=== PATIENT | female | born 1975 | race African-American/Black ===

== ENCOUNTER 2018-11-22 15:26 | Emergency (ER) | payer OTHER ==
--- NOTE | 2018-11-22 15:47 | PDOC ---
Rapid Medical Evaluation Chief Complaint: Migraine Headache Time Seen by Provider: 11/22/18 15:46 Medical Evaluation: Allergies Allergy/AdvReac Type Severity Reaction Status Date / Time No Known Allergies Allergy Verified 01/06/16 15:15 11/22/18 15:46 I performed a brief in-person evaluation of this patient. Chief complaint: Headache x 5 days, sent by PCP for eval Pertinent physical exam findings: No focal neurologic deficits I have ordered the following: Basic labs Patient will proceed to the ED for further evaluation. Discharge Disposition - Diagnosis Headache - Referrals - Patient Instructions - Post Discharge Activity
[2018-11-22 15:49] VITALS: BP 109/64; PULSE 86; TEMP 98; BMI 27.7
[2018-11-22 17:53] LABS: URINE APPEARANCE CLEAR; URINE BILIRUBIN NEGATIVE (<2.0 mg/dL); URINE COLOR YELLOW; URINE GLUCOSE (UA) NEGATIVE (NEGATIVE); URINE KETONE NEGATIVE (NEGATIVE); URINE LEUK ESTERASE NEGATIVE (NEGATIVE); URINE NITRITE NEGATIVE (NEGATIVE); URINE PROTEIN 2+ (NEGATIVE); URINE UROBILINOGEN NEGATIVE mg/dL (0.2-1.0)
[2018-11-22 17:59] LABS: BASO % 1.3 % (0-2.0); EOS % 4.1 % (0-4.5); HEMATOCRIT 38.2 % (32.4-45.2); LYMPH % 42.4 % (8-40); MCH 29.2 pg (25.7-33.7); MEAN CELL VOLUME 85.9 fl (80-96); MEAN PLT VOLUME 9.2 fl (7.5-11.1); MONO % 6.5 % (3.8-10.2); NEUT % 45.7 % (42.8-82.8); PLATELET COUNT 210 K/MM3 (134-434); RBC 4.45 M/mm3 (3.60-5.2); RDW 15.6 % (11.6-15.6); WHITE BLOOD COUNT 3.5 K/mm3 (4.0-10.0)
[2018-11-22 18:15] LABS: EPI CELLS RARE /HPF (FEW); URINE MUCUS RARE
[2018-11-22 18:20] LABS: ALBUMIN 3.8 g/dl (3.4-5.0); ALK PHOS 89 U/L (45-117); ANION GAP 4 MMOL/L (8-16); BILIRUBIN,TOTAL 0.2 mg/dL (0.2-1); BLOOD UREA NITROGEN 15 mg/dL (7-18); CALCIUM 8.6 mg/dL (8.5-10.1); CHLORIDE 108 mmol/L (98-107); CO2 28 mmol/L (21-32); CREATININE 0.6 mg/dL (0.55-1.3); GLUCOSE,RANDOM 92 mg/dL (74-106); POTASSIUM 4.1 mmol/L (3.5-5.1); SGOT/AST 20 U/L (15-37); SGPT/ALT 24 U/L (13-61); SODIUM 139 mmol/L (136-145); TOT PROT 7.6 g/dl (6.4-8.2)
[2018-11-22] MEDS ORDERED: METOCLOPRAMIDE HCL INJECTION 10 MG/2 ML VIAL IVPUSH ONE (18:31)
[2018-11-22] MEDS ORDERED: KETOROLAC TROMETHAMINE 30 MG/1 ML VIAL IVPUSH ONE (18:31)
--- NOTE | 2018-11-22 18:31 | PDOC ---
History of Present Illness - General Chief Complaint: Migraine Headache Stated Complaint: TOLU Time Seen by Provider: 11/22/18 15:46 History Source: Patient Exam Limitations: No Limitations - History of Present Illness Initial Comments: 11/22/18 19:30 HISTORY OF PRESENT ILLNESS: This is a 43-year-old woman with past medical history of diabetes and hyperlipidemia presents emergency department for 1 week of left-sided headache with intermittent dizziness. Patient reports headache started approximately one week ago does have a slow crescendo currently rates the pain 8/10. She describes the pain as deep and a pressure. She denies any nausea, vomiting, visual disturbances, photophobia or phonophobia. Patient reports less episode of dizziness was approximately 4 days ago which she described as a room spinning sensation. Patient reports the episode lasted for approximately 20 minutes and then spontaneously resolved. Patient has not taken any analgesic. No recent travel or sick contacts. PAST MEDICAL HISTORY: see HPI SURGICAL HISTORY: Denies ALLERGIES: No known drug allergies REVIEW OF SYSTEMS General/Constitutional: Denies fever or chills. Denies weakness, weight change. HEENT: Denies change in vision. Denies ear pain or discharge. Denies sore throat. Cardiovascular: Denies chest pain or shortness of breath. Respiratory: Denies cough, wheezing, or hemoptysis. Gastrointestinal: Denies nausea, vomiting, diarrhea or constipation. Denies rectal bleeding. Genitourinary: Denies dysuria, frequency, or change in urination. Musculoskeletal: Denies joint or muscle swelling or pain. Denies neck or back pain. Skin and breasts: Denies rash or easy bruising. Neurologic: see HPI Psychiatric: Denies depression or anxiety. Endocrine: Denies increased thirst. Denies abnormal weight change. Hematologic/Lymphatic: Denies anemia, easy bleeding, or history of blood clots. Allergic/Immunologic: Denies hives or skin allergy. Denies latex allergy. PHYSICAL EXAM General Appearance: Well-appearing, appropriately dressed. No apparent distress , no intoxication. HEENT: EOMI, PERRLA, normal ENT inspection, normal voice, TMs normal, pharynx normal. No conjunctival pallor. No photophobia, scleral icterus. Neck: Supple. Trachea midline. No tenderness, rigidity, carotid bruit, stridor , lymphadenopathy, or thyromegaly. Respiratory/Chest: Lungs CTAB. No shortness of breath, chest tenderness, respiratory distress, accessory muscle use. No crackles, rales, rhonchi, stridor , wheezing, dullness Cardiovascular: RRR. S1, S2. No JVD, murmur, bradycardia, tachycardia. Vascular Pulses: Dorsalis-Pedis (R): 2+, Dorsalis-Pedis (L): 2+ Gastrointestinal/Abdominal: Normal bowel sounds. Abdomen soft, non-distended. No tenderness or rebound tenderness. No organomegaly, pulsatile mass, guarding, hernia, hepatomegaly, splenomegaly. Lymphatic: No adenopathy, tenderness. Musculoskeletal/Extremities: Normal inspection. FROM of all extremities, normal capillary refill. Pelvis Stable. No CVA tenderness. No tenderness to extremities, pedal edema, swelling, erythema or deformity. Integumentary: Appropriate color, dry, warm. 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 Fully oriented, alert. Appropriate mood/affect. Motor strength 5/5. Normal finger to nose testing. Gait steady. No appreciable EOM palsy, facial droop or sensory deficit. Past History - Past Medical History Allergies/Adverse Reactions: Allergies Allergy/AdvReac Type Severity Reaction Status Date / Time No Known Allergies Allergy Verified 11/22/18 15:49 Home Medications: Ambulatory Orders No Home Medications 0 dose .ROUTE UTDICT 01/23/14 Amox-Tr/K Cl [Augmentin - 875Mg Tablet] 1 tab PO BID #14 tablet 01/06/16 Aspirin [ASA -] 81 mg PO DAILY 01/06/16 Atorvastatin Ca [Lipitor] 40 mg PO HS 01/06/16 Metformin HCl [Glucophage] 1,000 mg PO DAILY 01/06/16 COPD: No Diabetes: Yes Hypercholesterolemia: No - Immunization History Immunization Up to Date: Yes - Suicide/Smoking/Psychosocial Hx Smoking History: Never smoked Have you smoked in the past 12 months: No Information on smoking cessation initiated: No Hx Alcohol Use: No Drug/Substance Use Hx: No Substance Use Type: None *Physical Exam - Vital Signs Last Vital Signs Temp Pulse Resp BP Pulse Ox 98.0 F 86 18 109/64 100 11/22/18 15:45 11/22/18 15:45 11/22/18 15:45 11/22/18 15:45 11/22/18 15:45 Moderate Sedation - Procedure Monitoring Vital Signs: Procedure Monitoring Vital Signs Temperature 98.0 F 11/22/18 15:45 Pulse Rate 86 11/22/18 15:45 Respiratory Rate 18 11/22/18 15:45 Blood Pressure 109/64 11/22/18 15:45 O2 Sat by Pulse Oximetry (%) 100 11/22/18 15:45 ED Treatment Course - LABORATORY CBC & Chemistry Diagram: 11/22/18 17:38 11/22/18 17:38 - ADDITIONAL ORDERS Additional order review: Laboratory Results 11/22/18 11/22/18 11/22/18 17:38 17:06 17:06 Sodium 139 Potassium 4.1 Chloride 108 H Carbon Dioxide 28 Anion Gap 4 L BUN 15 Creatinine 0.6 Creat Clearance w eGFR 109.63 Random Glucose 92 Calcium 8.6 Total Bilirubin 0.2 AST 20 ALT 24 Alkaline Phosphatase 89 Total Protein 7.6 Albumin 3.8 Urine Color Yellow Urine Appearance Clear Urine pH 8.0 Ur Specific [place] 1.023 Urine Protein 2+ H Urine Glucose (UA) Negative Urine Ketones Negative Urine Blood Negative Urine Nitrite Negative Urine Bilirubin Negative Urine Urobilinogen Negative Ur Leukocyte Esterase Negative Urine WBC (Auto) <1 Urine RBC (Auto) 33 Ur Epithelial Cells Rare Urine Mucus Rare Urine HCG, Qual Negative 11/22/18 17:38 RBC 4.45 MCV 85.9 MCHC 34.0 RDW 15.6 D MPV 9.2 D Neutrophils % 45.7 Lymphocytes % 42.4 H Monocytes % 6.5 Eosinophils % 4.1 Basophils % 1.3 - RADIOLOGY Radiology Studies Ordered: Category Date Time Status HEAD CT WITHOUT CONTRAST [CT] Stat CT Scan 11/22/18 17:39 Ordered Medical Decision Making - Medical Decision Making 11/22/18 19:30 A/P: 43-year-old woman right-sided headache for the past 7 days. Neurologic exam is within normal limits CBC, CMP, ESR Urine testing CAT scan of the head Reglan 10 mg IV Benadryl 25 mg IV Toradol 30 mg IV Normal saline 1 L CAT scan of the head as read by Dr. Marc: Normal CT scan of the head with no evidence of acute intracranial pathology. 11/22/18 20:13 Laboratory testing notable for WBC of 3.5. Patient with known neutropenia per paperwork from PMD. Patient states relief from headache after receiving rescue medication for migraine. Given normal CAT scan I will discharge the patient home to follow-up with her primary doctor for reevaluation. I discussed the physical exam findings, ancillary test results and final diagnoses with the patient. I answered all of the patient's questions. The patient was satisfied with the care received and felt comfortable with the discharge plan and treatment plan. The patient will call their primary care physician within 24 hours to arrange follow-up and will return to the Emergency Department with any new, persistent or worsening symptoms. *DC/Admit/Observation/Transfer Diagnosis at time of Disposition: Headache Qualifiers: Headache type: unspecified Headache chronicity pattern: acute headache Intractability: not intractable Qualified Code(s): R51 - Headache - Discharge Dispostion Disposition: HOME Condition at time of disposition: Fair Decision to Admit order: No - Referrals - Patient Instructions Additional Instructions: Take Tylenol or Motrin as needed for headaches. Keep a diary of all food to eat and activities performed prior to headaches starting. Make an appointment with her primary doctor for reevaluation within the next week. Return to emergency department for worsening headache, blurry vision, dizziness , nausea, vomiting or any other concerns. Thank you very much for for choosing us to provide emergent health care needs. - Post Discharge Activity
[2018-11-22] MEDS ORDERED: SODIUM CHLORIDE 1,000 ML IV STA (19:16)
[2018-11-22] MEDS ORDERED: METOCLOPRAMIDE HCL INJECTION 10 MG/2 ML VIAL ONE (19:16)
[2018-11-22] MEDS ORDERED: KETOROLAC TROMETHAMINE 30 MG/1 ML VIAL ONE (19:17)
== END 2018-11-22 20:16 | disposition home or self-care (01) ==
LOC: JERFT 15:26
PROC: 3E0337Z Introduction of Electrolytic and Water Balance Substance into Peripheral Vein, Percutaneous Approach (ICD-10-PCS; principal; 2018-11-22)
PROC: 3E0333Z Introduction of Anti-inflammatory into Peripheral Vein, Percutaneous Approach (ICD-10-PCS; 2018-11-22)
PROC: 3E033GC Introduction of Other Therapeutic Substance into Peripheral Vein, Percutaneous Approach (ICD-10-PCS; 2018-11-22)
PROC: 3E033GC Introduction of Other Therapeutic Substance into Peripheral Vein, Percutaneous Approach (ICD-10-PCS; 2018-11-22)
DX: R51 Headache (principal); E78.00 Pure hypercholesterolemia, unspecified; E11.9 Type 2 diabetes mellitus without complications; Z79.84 Long term (current) use of oral hypoglycemic drugs
CPT/HCPCS: 36415; 70450-TC; 80053; 81003; 81015; 84703; 85025; 85651; 99281-25; J7030

== ENCOUNTER 2019-06-06 15:31 | Emergency (ER) | payer OTHER ==
--- NOTE | 2019-06-06 15:36 | PDOC ---
Rapid Medical Evaluation Chief Complaint: Pain Time Seen by Provider: 06/06/19 15:34 Medical Evaluation: Allergies Allergy/AdvReac Type Severity Reaction Status Date / Time No Known Allergies Allergy Verified 11/22/18 15:49 06/06/19 15:35 43 year old female c/o generalized abdominal pain since this morning. denies fever/ chills. Pe: patient alert ox3. A: abdominal pain P: ua urine Discharge Disposition - Diagnosis Abdominal pain Qualifiers: Abdominal location: generalized Qualified Code(s): R10.84 - Generalized abdominal pain - Referrals - Patient Instructions - Post Discharge Activity
[2019-06-06 15:38] VITALS: BP 98/69; PULSE 96; TEMP 98.3; BMI 27.2
[2019-06-06 16:28] LABS: EPI CELLS 3.5 /HPF (0-5/HPF); HYALINE CASTS 8 /lpf (0-8); PH,URINE 5.5 (5.0-8.0); URINE APPEARANCE CLOUDY; URINE BACTERIA 31.5 /hpf (NEGATIVE); URINE BILIRUBIN NEGATIVE (NEGATIVE); URINE COLOR YELLOW; URINE GLUCOSE (UA) NEGATIVE (NEGATIVE); URINE KETONE TRACE (NEGATIVE); URINE LEUK ESTERASE NEGATIVE (NEGATIVE); URINE NITRITE NEGATIVE (NEGATIVE); URINE PROTEIN NEGATIVE (NEGATIVE); URINE UROBILINOGEN 0.2 mg/dL (0.2-1.0); URINE WBC 3 /hpf (0-5)
[2019-06-06] MEDS ORDERED: SODIUM CHLORIDE 1,000 ML IV STA (16:38)
--- NOTE | 2019-06-06 16:41 | PDOC ---
History of Present Illness <Dimple Priest - Last Filed: 06/06/19 17:49> - General History Source: Patient Exam Limitations: No Limitations - History of Present Illness Travel History: No Initial Comments: 06/06/19 16:38 HISTORY OF PRESENT ILLNESS: 43-year-old woman he denies medical history presents emergency department for evaluation of diffuse abdominal pain which started this morning upon awakening. Patient reports she had some plantains and meat for dinner which she prepared at home. Other people ate the same food and are not having any symptoms as far she knows. Patient reports she has a cramping feeling which she rates as 6/10 throughout her abdomen. Patient reports the pain waxes and wanes and when the pain becomes intense she's been having loose green stools after pain crescendo. She denies any nausea or vomiting. She reports no blood in her stools. She denies fevers and chills. No recent travel or sick contacts. PAST MEDICAL HISTORY: Denies past medical history SURGICAL HISTORY: Denies ALLERGIES: No known drug allergies REVIEW OF SYSTEMS General/Constitutional: Denies fever or chills. Denies weakness, weight change. HEENT: Denies change in vision. Denies ear pain or discharge. Denies sore throat. Cardiovascular: Denies chest pain or shortness of breath. Respiratory: Denies cough, wheezing, or hemoptysis. Gastrointestinal: see HPI Genitourinary: Denies dysuria, frequency, or change in urination. Musculoskeletal: Denies joint or muscle swelling or pain. Denies neck or back pain. Skin and breasts: Denies rash or easy bruising. Neurologic: Denies headache, vertigo, loss of consciousness, or loss of sensation. Psychiatric: Denies depression or anxiety. Endocrine: Denies increased thirst. Denies abnormal weight change. Hematologic/Lymphatic: Denies anemia, easy bleeding, or history of blood clots. Allergic/Immunologic: Denies hives or skin allergy. Denies latex allergy. PHYSICAL EXAM General Appearance: Well-appearing, appropriately dressed. No apparent distress , no intoxication. Respiratory/Chest: Lungs CTAB. No shortness of breath, chest tenderness, respiratory distress, accessory muscle use. No crackles, rales, rhonchi, stridor , wheezing, dullness Cardiovascular: RRR. S1, S2. No JVD, murmur, bradycardia, tachycardia. Vascular Pulses: Dorsalis-Pedis (R): 2+, Dorsalis-Pedis (L): 2+ Gastrointestinal/Abdominal: Normal bowel sounds. Abdomen soft, non-distended. No tenderness or rebound tenderness. No organomegaly, pulsatile mass, guarding, hernia, hepatomegaly, splenomegaly. Lymphatic: No adenopathy, tenderness. Musculoskeletal/Extremities: Normal inspection. FROM of all extremities, normal capillary refill. Pelvis Stable. No CVA tenderness. No tenderness to extremities, pedal edema, swelling, erythema or deformity. I <Leland English - Last Filed: 06/06/19 18:52> - General Chief Complaint: Pain Stated Complaint: ABD PAIN Time Seen by Provider: 06/06/19 15:34 Past History <Dimple Priest - Last Filed: 06/06/19 17:49> - Past Medical History COPD: No Diabetes: Yes Hypercholesterolemia: No - Immunization History Immunization Up to Date: Yes - Psycho Social/Smoking Cessation Hx Smoking History: Never smoked Have you smoked in the past 12 months: No Hx Alcohol Use: No Drug/Substance Use Hx: No Substance Use Type: None <Leland English - Last Filed: 06/06/19 18:52> - Past Medical History Allergies/Adverse Reactions: Allergies Allergy/AdvReac Type Severity Reaction Status Date / Time No Known Allergies Allergy Verified 06/06/19 15:38 Home Medications: Ambulatory Orders No Home Medications 0 dose .ROUTE UTDICT 01/23/14 Amox-Tr/K Cl [Augmentin - 875Mg Tablet] 1 tab PO BID #14 tablet 01/06/16 Aspirin [ASA -] 81 mg PO DAILY 01/06/16 Atorvastatin Ca [Lipitor] 40 mg PO HS 01/06/16 Metformin HCl [Glucophage] 1,000 mg PO DAILY 01/06/16 Ondansetron HCl [Zofran] 4 mg PO TID PRN #12 tablet 06/06/19 *Physical Exam - Vital Signs Last Vital Signs Temp Pulse Resp BP Pulse Ox 98.3 F 96 H 18 98/69 97 06/06/19 15:34 06/06/19 15:34 06/06/19 15:34 06/06/19 15:34 06/06/19 15:34 <Dimple Priest - Last Filed: 06/06/19 17:49> - Vital Signs Last Vital Signs Temp Pulse Resp BP Pulse Ox 98.3 F 96 H 18 98/69 97 06/06/19 15:34 06/06/19 15:34 06/06/19 15:34 06/06/19 15:34 06/06/19 15:34 <Leland English - Last Filed: 06/06/19 18:52> ED Treatment Course - LABORATORY CBC & Chemistry Diagram: 06/06/19 17:00 06/06/19 17:00 - ADDITIONAL ORDERS Additional order review: Laboratory Results 06/06/19 06/06/19 16:05 16:05 Urine Color Yellow Urine Appearance Cloudy Urine pH 5.5 D Ur Specific [place] 1.023 Urine Protein Negative Urine Glucose (UA) Negative Urine Ketones Trace H Urine Blood 2+ H Urine Nitrite Negative Urine Bilirubin Negative Urine Urobilinogen 0.2 Ur Leukocyte Esterase Negative Urine WBC (Auto) 3 Urine Casts (Auto) 8 U Epithel Cells (Auto) 3.5 Urine Crystals (Auto) Urine Bacteria (Auto) 31.5 Urine HCG, Qual Negative 06/06/19 17:00 RBC 4.89 MCV 86.4 MCHC 32.7 RDW 15.1 MPV 8.4 Neutrophils % 63.9 D Lymphocytes % 28.1 D Monocytes % 4.9 Eosinophils % 2.3 Basophils % 0.8 <Dimple Priest - Last Filed: 06/06/19 17:49> - LABORATORY CBC & Chemistry Diagram: 06/06/19 17:00 06/06/19 17:00 - ADDITIONAL ORDERS Additional order review: Laboratory Results 06/06/19 16:05 Urine Color Yellow Urine Appearance Cloudy Urine pH 5.5 D Ur Specific [place] 1.023 Urine Protein Negative Urine Glucose (UA) Negative Urine Ketones Trace H Urine Blood 2+ H Urine Nitrite Negative Urine Bilirubin Negative Urine Urobilinogen 0.2 Ur Leukocyte Esterase Negative Urine WBC (Auto) 3 Urine Casts (Auto) 8 U Epithel Cells (Auto) 3.5 Urine Bacteria (Auto) 31.5 <Leland English - Last Filed: 06/06/19 18:52> Medical Decision Making - Medical Decision Making 06/06/19 17:49 The patient was seen and evaluated in conjunction with midlevel provider under my direct supervision, ancillary studies were reviewed. I agree with the plan as outlined RELIGIOUS EDUCATOR Amador. HPI, workup/dispo as outlined. VS reviewed, wnl. labs unremarkable. anticipate discharge, pcp followup, return precautions <Dimple Priest - Last Filed: 06/06/19 17:49> - Medical Decision Making 06/06/19 16:40 A/P: 43-year-old woman with diffuse abdominal pain starting this morning Abdominal exam is benign Most likely viral gastroenteritis given loose green stools. Abdominal labs including lipase Urine Normal saline 1 L IV bolus Reassess 06/06/19 18:50 Patient reports improvement of abdominal pain after receiving 1 L fluid. Laboratory testing is unremarkable given benign abdominal exam I will defer imaging at this time. I will discharge the patient home with prescription for Zofran should she begin to experience any nausea. I discussed the physical exam findings, ancillary test results and final diagnoses with the patient. I answered all of the patient's questions. The patient was satisfied with the care received and felt comfortable with the discharge plan and treatment plan. The patient will call their primary care physician within 24 hours to arrange follow-up and will return to the Emergency Department with any new, persistent or worsening symptoms. Portions of this note have been documented using voice recognition software. As a result, errors may occur in the risk and insurance manager process. Effort has been made to correct all grammatical and risk and insurance manager error, but some may have been missed. <AmadorLeland - Last Filed: 06/06/19 18:52> Discharge <Dimple Priest - Last Filed: 06/06/19 17:49> - Discharge Information Problems reviewed: Yes - Admission No <Leland English - Last Filed: 06/06/19 18:52> - Discharge Information Clinical Impression/Diagnosis: Gastroenteritis Condition: Fair Disposition: HOME - Additional Discharge Information Prescriptions: Ondansetron HCl [Zofran] 4 mg PO TID PRN #12 tablet PRN Reason: Nausea And/Or Vomiting - Patient Discharge Instructions Additional Instructions: Rest, drink lots of fluids: Teas, water, soups Neelima monisha, carbonated beverages for the bubbles May try peppermint teas Avoid heavy , spicy or fatty foods until symptoms have resolved Avoid contact with others until fevers and symptoms resolved Lots of handwashing and good hygiene Continue [id number] medications for symptomatic relief Tylenol or Motrin for fever and pain May use Zofran-one tablet dissolved on tongue as needed for nauseousness. May repeat times one every 8 hours Followup with private physician in one to 2 days as needed Return to emergency department for worsened symptoms, fevers, dehydration
[2019-06-06 17:26] LABS: BASO % 0.8 % (0-2.0); EOS % 2.3 % (0-4.5); HEMATOCRIT 42.3 % (32.4-45.2); HEMOGLOBIN 13.8 GM/dL (10.7-15.3); LYMPH % 28.1 % (8-40); MCH 28.3 pg (25.7-33.7); MCHC 32.7 g/dl (32.0-36.0); MEAN CELL VOLUME 86.4 fl (80-96); MEAN PLT VOLUME 8.4 fl (7.5-11.1); MONO % 4.9 % (3.8-10.2); NEUT % 63.9 % (42.8-82.8); PLATELET COUNT 204 K/MM3 (134-434); RBC 4.89 M/mm3 (3.60-5.2); RDW 15.1 % (11.6-15.6); WHITE BLOOD COUNT 4.1 K/mm3 (4.0-10.0)
[2019-06-06 18:00] LABS: ALBUMIN 4.2 g/dl (3.4-5.0); BILIRUBIN,TOTAL 0.3 mg/dL (0.2-1); BLOOD UREA NITROGEN 12.3 mg/dL (7-18); CALCIUM 9.2 mg/dL (8.5-10.1); CREATININE 0.8 mg/dL (0.55-1.3); POTASSIUM 3.7 mmol/L (3.5-5.1); TOT PROT 8.1 g/dl (6.4-8.2)
== END 2019-06-06 19:01 | disposition home or self-care (01) ==
LOC: JER 15:31
PROC: 3E0337Z Introduction of Electrolytic and Water Balance Substance into Peripheral Vein, Percutaneous Approach (ICD-10-PCS; principal; 2019-06-06)
DX: K52.9 Noninfective gastroenteritis and colitis, unspecified (principal); E11.9 Type 2 diabetes mellitus without complications; Z79.84 Long term (current) use of oral hypoglycemic drugs; E78.00 Pure hypercholesterolemia, unspecified
CPT/HCPCS: 36415; 80053; 81003; 83690; 84703; 85025; 99282-25; J7030

== ENCOUNTER 2022-07-28 11:32 | Emergency (ER) | payer OTHER ==
[2022-07-28 11:50] VITALS: BP 141/89; PULSE 95; RESP 18; TEMP 98.3; BMI 28.0
[2022-07-28] MEDS ORDERED: IBUPROFEN 600 MG TABLET (FP) PO ONE ×2 (12:46→12:48)
== END 2022-07-28 12:55 | disposition home or self-care (01) ==
LOC: JER 11:32 → JERFT 11:32
DX: S13.4XXA Sprain of ligaments of cervical spine, initial encounter (principal); V49.40XA Driver injured in collision with unspecified motor vehicles in traffic accident, initial encounter
CPT/HCPCS: 99283-25

== ENCOUNTER 2023-04-18 08:17 | Emergency (ER) | payer OTHER ==
[2023-04-18 08:34] VITALS: BP 111/75; PULSE 73; RESP 14; TEMP 97.7; BMI 27.2
[2023-04-18] MEDS ORDERED: ACETAMINOPHEN 500 MG TABLET (FP) PO ONE (08:51)
[2023-04-18] MEDS ORDERED: ACETAMINOPHEN 325 MG TABLET (FP) ONE (08:56)
== END 2023-04-18 11:05 | disposition home or self-care (01) ==
LOC: JER 08:17
DX: S60.222A Contusion of left hand, initial encounter (principal); M79.642 Pain in left hand; W23.1XXA Caught, crushed, jammed, or pinched between stationary objects, initial encounter
CPT/HCPCS: 73110-TC-LT-FY; 73130-TC-LT-FY; 99283-25